=== PATIENT | male | born 1945 | race Caucasian/White ===

== ENCOUNTER → 2016-03-01 | Outpatient (CLI) | payer OTHER ==
[~2016-03-01] MED LIST: AMIO200T4 PO; ASPI81TA28 PO; CARV6.252 PO; CHOL20009 PO; ISOS40TA5 PO; LISI-729 PO; PRLSR20 PO; SITA1TAB27 PO; SPIR25TA PO; THY30 PO; TICA1TAB PO
[2016-03-01 17:32] LABS: HEMATOCRIT 43.4 % (42-52); MEAN CELL VOLUME 85.9 fL (80-100); MEAN CORPUSCULAR HEMOGLOBIN 29.1 pg (25-34); MEAN CORPUSCULAR HGB CONC 33.9 g/dl (32-36); MEAN PLATELET VOLUME 11.7 fL (7.4-10.4); PLATELET COUNT 238 K/uL (130-400); RED BLOOD COUNT 5.05 M/uL (4.7-6.1); WHITE BLOOD COUNT 9.56 K/uL (4.8-10.8)
[2016-03-01 17:34] LABS: ALT/SGPT 37 U/L (12-78); AST/SGOT 27 U/L (15-37); BLOOD UREA NITROGEN 21 mg/dl (7-18); BUN/CREATININE RATIO 14.1 (10-20); CALCIUM 9.6 mg/dl (8.5-10.1); CARBON DIOXIDE 25 mmol/L (21-32); CHLORIDE 106 mmol/L (98-107); GLUCOSE 92 mg/dl (70-99); POTASSIUM 3.8 mmol/L (3.5-5.1); SODIUM 140 mmol/L (136-145)
[2016-03-01 17:44] LABS: ALB/GLOB RATIO 0.8 (0.9-2); ALKALINE PHOSPHATASE 95 U/L (45-117); FREE PSA 0.08 ng/ml; PROSTATE SPECIFIC ANTIGEN 0.235 ng/ml (0.000-4.000)
[2016-03-02 06:56] LABS: ESTIMATED AVERAGE GLUCOSE 111 mg/dl; HA1C FLAG Normal (Normal)
--- NOTE | 2016-03-12 11:35 | CODING QUERY MEDICAL NECESSITY ---
SUPPORTING DIAGNOSIS NEEDED A supporting diagnosis is required for the test/procedure performed on this patient in order for us to be reimbursed by the patient's insurance. Please provide a supporting diagnosis for the following test/procedure listed below next to the test name along with your signature. *If there is no additional diagnosis for this patient that would support the following test/procedure please document that below next to the test/procedure. Test(s)/Procedure(s) that require a supporting diagnosis: DOS 03/01 * Hba1c DIAGNOSIS: Provider Signature: Date: Thank you Peggy Cortez Health Information Management Once completed, please kindly fax back to [phone] For questions please call [phone]
== END | disposition home or self-care (01) ==
LOC: C.LABPBG 13:47
PROVIDERS: ATTEND Neuromusculoskeletal Medicine & OMM
DX: Z00.00 Encounter for general adult medical examination without abnormal findings (principal); N40.1 Benign prostatic hyperplasia with lower urinary tract symptoms; I25.10 Atherosclerotic heart disease of native coronary artery without angina pectoris; E03.9 Hypothyroidism, unspecified; E11.9 Type 2 diabetes mellitus without complications

== ENCOUNTER → 2016-03-29 | Outpatient (CLI) | payer OTHER ==
[2016-03-29 17:29] LABS: HEMATOCRIT 41.2 % (42-52); MEAN CELL VOLUME 84.3 fL (80-100); MEAN CORPUSCULAR HEMOGLOBIN 27.8 pg (25-34); MEAN PLATELET VOLUME 10.8 fL (7.4-10.4); PLATELET COUNT 237 K/uL (130-400); RED BLOOD COUNT 4.89 M/uL (4.7-6.1); WHITE BLOOD COUNT 8.93 K/uL (4.8-10.8)
[2016-03-29 17:49] LABS: ALT/SGPT 35 U/L (12-78); AST/SGOT 18 U/L (15-37); BLOOD UREA NITROGEN 20 mg/dl (7-18); BUN/CREATININE RATIO 13.5 (10-20); CALCIUM 9.1 mg/dl (8.5-10.1); CARBON DIOXIDE 27 mmol/L (21-32); CHLORIDE 108 mmol/L (98-107); GLUCOSE 83 mg/dl (70-99); POTASSIUM 3.6 mmol/L (3.5-5.1); SODIUM 143 mmol/L (136-145)
[2016-03-29 17:51] LABS: ESTIMATED AVERAGE GLUCOSE 108 mg/dl; HA1C FLAG Normal (Normal)
[2016-03-29 17:58] LABS: URINE APPEARANCE TURBID (CLEAR); URINE BILIRUBIN NEG (NEG); URINE COLOR YELLOW; URINE EPITHELIAL CELL AUTO >30 /lpf (0-5); URINE NITRITE NEG (NEG); URINE SPECIFIC GRAVITY 1.023 (1.000-1.030); UROBILINOGEN NEG (NEG)
[2016-03-29 17:59] LABS: ALKALINE PHOSPHATASE 77 U/L (45-117)
[2016-03-29 18:00] LABS: MANUAL MICROSCOPIC REQUIRED? NO; REVIEW REQ? NO
--- NOTE | 2016-04-02 09:43 | CODING QUERY MEDICAL NECESSITY ---
SUPPORTING DIAGNOSIS NEEDED , A supporting diagnosis is required for the test/procedure performed on this patient in order for us to be reimbursed by the patient's insurance. Please provide a supporting diagnosis for the following test/procedure listed below next to the test name along with your signature. *If there is no additional diagnosis for this patient that would support the following test/procedure please document that below next to the test/procedure. Test(s)/Procedure(s) that require a supporting diagnosis: * [id number] GLYCATED HEMOGLOBIN DIAGNOSIS: DATE OF SERVICE: 03/29/16 Provider Signature: Date: Thank you Jean Paul Zacarias [facility] Information Management Once completed, please kindly fax back to [phone] For questions please call [phone]
== END | disposition home or self-care (01) ==
LOC: C.LABPBG 13:44
PROVIDERS: ATTEND Neuromusculoskeletal Medicine & OMM
DX: I25.10 Atherosclerotic heart disease of native coronary artery without angina pectoris (principal); R30.0 Dysuria; Z11.59 Encounter for screening for other viral diseases; E03.9 Hypothyroidism, unspecified

== ENCOUNTER → 2016-04-24 | Outpatient (CLI) | payer OTHER ==
[2016-04-24 18:09] LABS: BLOOD UREA NITROGEN 32 mg/dl (7-18); GLUCOSE 79 mg/dl (70-99)
[2016-04-24 18:10] LABS: CALCIUM 9.4 mg/dl (8.5-10.1); CARBON DIOXIDE 27 mmol/L (21-32); CHLORIDE 105 mmol/L (98-107); SODIUM 139 mmol/L (136-145)
== END | disposition home or self-care (01) ==
LOC: C.LABPBG 13:32
PROVIDERS: ATTEND Neuromusculoskeletal Medicine & OMM
DX: N18.3 Chronic kidney disease, stage 3 (moderate) (principal)

== ENCOUNTER → 2016-05-21 | Outpatient (CLI) | payer OTHER ==
[~2016-05-21] MED LIST changes: +CEPH500C PO; +FLNIN/ NAE; +LSX40 PO; +NTRGSL/4 UT; +THYR90TA6 PO; +VALS-56 PO
[2016-05-21 17:48] LABS: BLOOD UREA NITROGEN 32 mg/dl (7-18); BUN/CREATININE RATIO 20.1 (10-20); CALCIUM 9.1 mg/dl (8.5-10.1); CARBON DIOXIDE 25 mmol/L (21-32); CHLORIDE 108 mmol/L (98-107); GLUCOSE 88 mg/dl (70-99); POTASSIUM 3.6 mmol/L (3.5-5.1); SODIUM 142 mmol/L (136-145); URIC ACID 7.8 mg/dl (2.6-7.2)
[2016-05-21 17:49] LABS: PHOSPHORUS 2.8 mg/dl (2.5-4.9)
[2016-05-21 18:01] LABS: URINE PROTIEN/CREAT RATIO 0.1 (0-0.2); URINE TOTAL PROTEIN 13.3 mg/dl (0-11.9)
[2016-05-21 18:09] LABS: URINE APPEARANCE CLOUDY (CLEAR); URINE BILIRUBIN NEG (NEG); URINE COLOR YELLOW; URINE EPITHELIAL CELL AUTO 20-30 /lpf (0-5); URINE NITRITE NEG (NEG); URINE SPECIFIC GRAVITY 1.025 (1.000-1.030); UROBILINOGEN NEG (NEG)
[2016-05-21 18:13] LABS: MANUAL MICROSCOPIC REQUIRED? NO; REVIEW REQ? NO
== END | disposition home or self-care (01) ==
LOC: C.LABPBG 13:51
PROVIDERS: ATTEND Internal Medicine Nephrology
DX: N17.9 Acute kidney failure, unspecified (principal)

== ENCOUNTER → 2016-05-31 | Outpatient (CLI) | payer OTHER ==
--- NOTE | 2016-05-31 12:28 | DIAGNOSTIC IMAGING REPORT ---
RENAL ULTRASOUND HISTORY: N17.9 BEATRIS (acute kidney injury)[id number] COMPARISON: Abdomen and pelvis CT 03/21/2015. FINDINGS: Right kidney: 11.5 cm. No hydronephrosis. Normal corticomedullary differentiation and cortical thickness. Left kidney: 11.2 cm. No hydronephrosis. Normal corticomedullary differentiation and cortical thickness. Bladder: No bladder wall thickening. The bilateral ureteral jets were identified. IMPRESSION: Normal renal ultrasound. Electronically signed by: Vinicio Avalos M.D. 05/31/2016 12:26 PM Dictated Date/Time: 05/31/2016 12:21 PM
--- NOTE | 2016-05-31 13:03 | DIAGNOSTIC IMAGING REPORT ---
RENAL ARTERY DUPLEX ULTRASOUND CLINICAL HISTORY: N17.9 BEATRIS (acute kidney injury)[id number] COMPARISON STUDY: No previous studies for comparison. FINDINGS: The peak systolic velocity within the aorta was 90 cm/s. The peak systolic velocity within the right renal artery is 93 cm/s. The peak systolic velocity in left renal arteries 102 cm/s. Both renal veins are patent. IMPRESSION: No evidence of renal artery stenosis. Both renal veins appear patent Electronically signed by: Abdias Ivey M.D. 05/31/2016 1:01 PM Dictated Date/Time: 05/31/2016 12:23 PM
== END | disposition home or self-care (01) ==
LOC: C.ULTR 10:52
PROVIDERS: ATTEND Internal Medicine Nephrology
DX: N17.9 Acute kidney failure, unspecified (principal)

== ENCOUNTER → 2016-06-26 | Outpatient (CLI) | payer OTHER ==
[2016-06-26 13:23] LABS: BLOOD UREA NITROGEN 22 mg/dl (7-18); BUN/CREATININE RATIO 15.8 (10-20); CALCIUM 9.3 mg/dl (8.5-10.1); CARBON DIOXIDE 27 mmol/L (21-32); CHLORIDE 109 mmol/L (98-107); GLUCOSE 82 mg/dl (70-99); POTASSIUM 4.2 mmol/L (3.5-5.1); SODIUM 143 mmol/L (136-145)
[2016-06-26 13:24] LABS: PHOSPHORUS 2.5 mg/dl (2.5-4.9)
== END | disposition home or self-care (01) ==
LOC: C.LAB1850 11:13
PROVIDERS: ATTEND Internal Medicine Nephrology
DX: N18.3 Chronic kidney disease, stage 3 (moderate) (principal)

== ENCOUNTER → 2016-07-25 | Outpatient (CLI) | payer OTHER | END | disposition home or self-care (01) | LOC: C.LABPBG 09:35 | PROVIDERS: ATTEND Neuromusculoskeletal Medicine & OMM | DX: R04.0 Epistaxis (principal) ==

== ENCOUNTER → 2016-09-20 | Outpatient (CLI) | payer OTHER ==
[2016-09-20 17:19] LABS: BLOOD UREA NITROGEN 26 mg/dl (7-18); BUN/CREATININE RATIO 16.6 (10-20); CARBON DIOXIDE 22 mmol/L (21-32); CHLORIDE 111 mmol/L (98-107); GLUCOSE 129 mg/dl (70-99); PHOSPHORUS 2.4 mg/dl (2.5-4.9); POTASSIUM 3.7 mmol/L (3.5-5.1); SODIUM 142 mmol/L (136-145)
== END | disposition home or self-care (01) ==
LOC: C.LABPBG 12:47
PROVIDERS: ATTEND Internal Medicine Nephrology
DX: N18.3 Chronic kidney disease, stage 3 (moderate) (principal)

== ENCOUNTER → 2016-10-16 | Outpatient (CLI) | payer OTHER ==
[2016-10-16 13:01] LABS: THYROID STIMULATING HORMONE 29.6 uIu/ml (0.300-4.500)
== END | disposition home or self-care (01) ==
LOC: C.LABPBG 10:23
PROVIDERS: ATTEND Physician Assistant
DX: E03.9 Hypothyroidism, unspecified (principal); J02.9 Acute pharyngitis, unspecified

== ENCOUNTER 2016-11-17 11:45 | Emergency (ER) | payer OTHER ==
[~2016-11-17] VITALS: Ht 185.4 cm; Wt 115.0 kg
[~2016-11-17 11:45] MED LIST changes: -CEPH500C PO; -FLNIN/ NAE; -LSX40 PO; -NTRGSL/4 UT; -THYR90TA6 PO; -VALS-56 PO
[2016-11-17 11:49] VITALS: TEMP 36.8; Ht 185.4 cm; Wt 115.0 kg
[2016-11-17] MEDS ORDERED: VALS-56 PO (12:40)
[2016-11-17] MEDS ORDERED: LSX40 PO (12:40)
[2016-11-17] MEDS ORDERED: THYR90TA6 PO (12:40)
[2016-11-17] MEDS ORDERED: NTRGSL/4 UT (12:40)
[2016-11-17] MEDS ORDERED: FLNIN/ NAE (12:40)
[2016-11-17] MEDS ORDERED: ACETAMINOPHEN 500 MG TAB PO STA (12:58)
[2016-11-17 12:59] VITALS: O2SAT 96
--- NOTE | 2016-11-17 13:00 | EMERGENCY ROOM VISIT NOTE ---
History Report prepared by Trey: Arturo Taylor Under the Supervision of: Dr. Andrés Moreno M.D. First contact with patient: 12:48 Chief Complaint: OTHER COMPLAINT Stated Complaint: INFECTION Nursing Triage Summary: pt ambulated to triage pt states " I have an infection in me it is all through me I wake up in the middle of the night soaking the bed" pt reports I had blisters on my head and in my mouth, reports intermittent cough for approx 1 month History of Present Illness The patient is a 71 year old male who presents to the Emergency Room with a complaints of a constant generalized illness for the past month. The patient reports having a cough, chest pain that worsens with coughing, night sweats, headache, fatigue, "water blisters" on his forehead, neck, and mouth. He denies any fever, nausea, vomiting, shortness of breath, diarrhea, dysuria and water weight gain in his legs. He notes that he saw a PA at his PCP's office a month ago for his symptoms, but states that he was treated for his hypothyroidism instead. He reports that his symptoms have not resolved since then and that he has not taken any medications for his illness. He notes that he has a history of heart failure and had a heart attack last year and was brought into the Emergency Room by EMS and did have two stents placed. He reports that the last time he saw his nurse care manager was last year and he takes daily Lasix. Source of History: patient Onset: one month ago Position: other (global) Timing: constant Associated Symptoms: + headache, + diaphoresis, + cough, + chest pain, + fatigue, No fevers, No SOB, No nausea, No vomiting, No diarrhea, No urinary symptoms Note: He is also experiencing symptoms of night sweats and blisters on his forehead and neck and in his mouth. He denies any water weight gain in his legs. Review of Systems See HPI for pertinent positives and negatives. A total of ten systems were reviewed and were otherwise negative. Past Medical & Surgical Medical Problems: (1) Abdominal pain (2) CAD (coronary artery disease) (3) CKD (chronic kidney disease), stage III (4) Diverticulosis of sigmoid colon (5) DM2 (diabetes mellitus, type 2) (6) GERD (gastroesophageal reflux disease) (7) History of left heart catheterization (LHC) (8) HLD (hyperlipidemia) (9) HTN (hypertension) (10) Internal hemorrhoid (11) STEMI (ST elevation myocardial infarction) (12) Tobacco abuse Surgical Problems: (1) H/O colonoscopy (2) H/O hernia repair (3) History of esophagogastroduodenoscopy (EGD) Family History FH: heart disease FATHER BROTHER (CABG in 50s) Stroke Social History Smoking Status: Never Smoker Drug Use: none Housing Status: lives with family Occupation Status: retired Current/Historical Medications Scheduled Amiodarone Hcl (Cordarone), 200 MG PO DAILY Carvedilol (Coreg), 6.25 MG PO BID Cephalexin Monohydrate (Keflex), 500 MG PO QID Cholecalciferol (Vitamin D), 2,000 INTER.UNIT PO DAILY Fluticasone Propionate (Fluticasone Propionate), 2 SPRAYS AYSHA DAILY Isosorbide Dinitrate Ext Rel (Isordil Ext Rel), 40 MG PO QAM Nitroglycerin (Nitrostat), 0.4 MG UT PRN Omeprazole (Prilosec), 20 MG PO DAILY Thyroid ([employer] Thyroid 90), 90 MG PO DAILYBB Ticagrelor (Brilinta), 90 MG PO BID Valsartan (Valsartan), 40 MG PO DAILY Scheduled PRN Furosemide (Furosemide), 40 MG PO DAILY PRN for SWELLING Allergies Coded Allergies: Gadolinium (Verified Allergy, Severe, Unknown, 11/17/16) Sent to [place] for severe reaction. Clopidogrel (Unverified Allergy, Unknown, UNKNOWN, 11/17/16) Levothyroxine (Verified Allergy, Unknown, Blistering of skin., 11/17/16) Statins (Unverified Allergy, Unknown, SHORTNESS OF BREATH, 11/17/16) Physical Exam Vital Signs Date Time Temp Pulse Resp B/P (MAP) Pulse Ox O2 Delivery O2 Flow Rate FiO2 11/17/16 15:48 56 162/101 96 11/17/16 14:17 54 152/81 96 Room Air 11/17/16 13:26 52 11/17/16 12:59 96 Room Air 11/17/16 12:58 55 128/64 96 Room Air 11/17/16 11:49 36.8 62 18 138/75 96 Room Air Physical Exam GENERAL: Awake, alert, well-appearing, in no distress HENT: Normocephalic, atraumatic. Mild erythema in the posterior scalp, punctate lesions that have been excoriated, mild warmth, no crepitus, fluctuance or induration. Oropharynx unremarkable. Dry mucous membranes EYES: Normal conjunctiva. Sclera non-icteric. NECK: Supple. No nuchal rigidity. FROM. No JVD. RESPIRATORY: Clear to auscultation. CARDIAC: Regular rate, normal rhythm. Extremities warm and well perfused. Pulses equal. ABDOMEN: Obese, soft, non-distended. No tenderness to palpation. No rebound or guarding. No masses. RECTAL: Deferred. MUSCULOSKELETAL: Chest examination reveals no tenderness. The back is symmetrical on inspection without obvious abnormality. There is no CVA tenderness to palpation. No joint edema. LOWER EXTREMITIES: Scant LE edema Calves are equal size bilaterally and non- tender. No discoloration. Legs are symmetric, no pain in calves. NEURO: Normal sensorium. No sensory or motor deficits noted. SKIN: No rash or jaundice noted. Medical Decision & Procedures ER Provider Diagnostic Interpretation: Radiology results as stated below per my review and radiologist interpretation: CHEST ONE VIEW PORTABLE CLINICAL HISTORY: 71 years-old Male presenting with CHEST PAIN. TECHNIQUE: Portable upright AP view of the chest was obtained. COMPARISON: 09/15/2015. FINDINGS: Cardiac silhouette enlarged, unchanged. Prominence of pulmonary vasculature. Prominent reticular lung markings with vague bibasilar density. No other focal infiltrate. No large effusion or pneumothorax. Degenerative changes of the thoracic spine. Upper abdomen normal. IMPRESSION: 1. Cardiomegaly with pulmonary basilar prominence and prominence of interstitial lung markings suggest volume overload. No jennifer pulmonary edema. This appearance is not significantly changed from prior radiograph. Electronically signed by: Kali Galo M.D. 11/17/2016 3:17 PM Laboratory Results 11/17/16 13:15 Red Blood Count 4.60, Mean Corpuscular Volume 84.1, Mean Corpuscular Hemoglobin 27.8, Mean Corpuscular Hemoglobin Concent 33.1, Mean Platelet Volume 10.4, Neutrophils (%) (Auto) 70.1, Lymphocytes (%) (Auto) 19.0, Monocytes (%) (Auto) 7.0, Eosinophils (%) (Auto) 2.7, Basophils (%) (Auto) 0.6, Neutrophils # (Auto) 7.44, Lymphocytes # (Auto) 2.01, Monocytes # (Auto) 0.74, Eosinophils # (Auto) 0.29, Basophils # (Auto) 0.06 11/17/16 13:15 Test 11/17/16 13:15 11/17/16 14:15 White Blood Count 10.60 K/uL (4.8-10.8) Red Blood Count 4.60 M/uL (4.7-6.1) Hemoglobin 12.8 g/dL (14.0-18.0) Hematocrit 38.7 % (42-52) Mean Corpuscular Volume 84.1 fL (80-100) Mean Corpuscular Hemoglobin 27.8 pg (25-34) Mean Corpuscular Hemoglobin Concent 33.1 g/dl (32-36) Platelet Count 268 K/uL (130-400) Mean Platelet Volume 10.4 fL (7.4-10.4) Neutrophils (%) (Auto) 70.1 % Lymphocytes (%) (Auto) 19.0 % Monocytes (%) (Auto) 7.0 % Eosinophils (%) (Auto) 2.7 % Basophils (%) (Auto) 0.6 % Neutrophils # (Auto) 7.44 K/uL (1.4-6.5) Lymphocytes # (Auto) 2.01 K/uL (1.2-3.4) Monocytes # (Auto) 0.74 K/uL (0.11-0.59) Eosinophils # (Auto) 0.29 K/uL (0-0.5) Basophils # (Auto) 0.06 K/uL (0-0.2) RDW Standard Deviation 41.2 fL (36.4-46.3) RDW Coefficient of Variation 13.5 % (11.5-14.5) Immature Granulocyte % (Auto) 0.6 % Immature Granulocyte # (Auto) 0.06 K/uL (0.00-0.02) Anion Gap 10.0 mmol/L (3-11) Est Creatinine Clear Calc Drug Dose 68.2 ml/min Estimated GFR () 63.2 Estimated GFR (Non- 54.5 BUN/Creatinine Ratio 16.5 (10-20) Calcium Level 8.9 mg/dl (8.5-10.1) Total Bilirubin 0.4 mg/dl (0.2-1) Direct Bilirubin 0.1 mg/dl (0-0.2) Aspartate Amino Transf (AST/SGOT) 22 U/L (15-37) Alanine Aminotransferase (ALT/SGPT) 33 U/L (12-78) Alkaline Phosphatase 139 U/L (45-117) Troponin I < 0.015 ng/ml (0-0.045) Pro-B-Type Natriuretic Peptide 2651 pg/ml (0-900) Total Protein 7.9 gm/dl (6.4-8.2) Albumin 3.2 gm/dl (3.4-5.0) Lipase 275 U/L (73-393) Urine Color DK YELLOW Urine Appearance CLEAR (CLEAR) Urine pH 5.0 (4.5-7.5) Urine Specific [place] 1.033 (1.000-1.030) Urine Protein TRACE (NEG) Urine Glucose (UA) NEG (NEG) Urine Ketones NEG (NEG) Urine Occult Blood NEG (NEG) Urine Nitrite NEG (NEG) Urine Bilirubin NEG (NEG) Urine Urobilinogen NEG (NEG) Urine Leukocyte Esterase TRACE (NEG) Urine WBC (Auto) 5-10 /hpf (0-5) Urine RBC (Auto) 0-4 /hpf (0-4) Urine Hyaline Casts (Auto) 1-5 /lpf (0-5) Urine Epithelial Cells (Auto) >30 /lpf (0-5) Urine Bacteria (Auto) NEG (NEG) Laboratory results reviewed by me Medications Administered Medications (Trade) Dose Ordered Sig/Radha Route Start Time Stop Time Status Last Admin Dose Admin Acetaminophen (Tylenol Tab) 1,000 mg NOW STAT PO 11/17/16 12:58 11/17/16 12:59 DC 11/17/16 13:07 1,000 MG Cephalexin Monohydrate (Keflex Cap) 500 mg NOW ONCE PO 11/17/16 15:45 11/17/16 15:46 DC 11/17/16 15:44 500 MG ECG Indication: chest pain Rate (beats per minute): 52 Rhythm: sinus bradycardia Findings: no acute ischemic change, other (Normal axis) Change: no significant change ED Course 1249: The patient was evaluated in room C4. A complete history and physical exam was performed. 1258: Tylenol Tab 1000mg PO 1519: I reevaluated and updated the patient. He is resting comfortably. 1545: Keflex Cap 500mg PO 1640: I reevaluated the patient. Discussed results and discharge instructions: He verbalized understanding and agreement. The patient is ready for discharge. Medical Decision I reviewed the patient's past medical history, medications, and the nursing notes as described above. The differential diagnoses considered include: cellulitis, dehydration, electrolyte abnormality, CHF, or ACS. The patient is a 71 year gentleman with a past medical history of CHF with an EF of 35% sensitive emergency department with vague complaints of fatigue over the past month with redness to his scalp per history of present illness. The patient is relatively well-appearing, no acute distress, afebrile with stable vital signs. Mild redness to the posterior aspect of the scalp without any crepitus induration or fluctuance. Labs unremarkable with WBC within normal limits, [employer] in the 1999s however patient has been in the 3000s and denies any respiratory symptoms. Chest x-ray with cardiomegaly but mild vascular congestion but again patient denies any dyspnea and satting normally on room air. Patient reevaluated and requesting discharge. Given no emergent findings discharge is reasonable with close follow-up. Treat with Keflex. Findings and plan for follow-up d/w patient. Patient agreeable and d/c'd per discharge instructions. Medication Reconcilliation Current Medication List: was personally reviewed by me Blood Pressure Screening Patient's blood pressure: Elevated blood pressure Blood pressure disposition: Referred to PCP Impression Primary Impression: Cellulitis of scalp Scribe Attestation The scribe's documentation has been prepared under my direction and personally reviewed by me in its entirety. I confirm that the note above accurately reflects all work, treatment, procedures, and medical decision making performed by me. Departure Information Dispostion Home / Self-Care Prescriptions Cephalexin Monohydrate (Keflex) 500 Mg Cap 500 MG PO QID for 7 Days, #28 CAP Prov: Andrés Moreno M.D. 11/17/16 Referrals Sarahi Cortes DO (PCP) Patient Instructions Cellulitis Dc, Fatigue Manage, My [facility] Additional Instructions Please follow up with your primary care physician tomorrow for re-evaluation and with your nurse care manager as scheduled. You have a skin infection on your scalp. Otherwise, your exam, EKG, chest xray, and lab results did not show signs of an emergent condition at this time. Return to the emergency department for worsening symptoms as described in the accompanying instructions.
[2016-11-17 13:35] LABS: BASO % 0.6 %; BASO ABS # 0.06 K/uL (0-0.2); COMPLETE YES; EOS % 2.7 %; HEMATOCRIT 38.7 % (42-52); IG% 0.6 %; LYMPH ABS # 2.01 K/uL (1.2-3.4); MEAN CELL VOLUME 84.1 fL (80-100); MEAN CORPUSCULAR HEMOGLOBIN 27.8 pg (25-34); MEAN CORPUSCULAR HGB CONC 33.1 g/dl (32-36); MEAN PLATELET VOLUME 10.4 fL (7.4-10.4); NEUT % 70.1 %; PLATELET COUNT 268 K/uL (130-400)
[2016-11-17 14:01] LABS: ALT/SGPT 33 U/L (12-78); AST/SGOT 22 U/L (15-37); BLOOD UREA NITROGEN 21 mg/dl (7-18); BUN/CREATININE RATIO 16.5 (10-20); CALCIUM 8.9 mg/dl (8.5-10.1); CARBON DIOXIDE 22 mmol/L (21-32); CHLORIDE 109 mmol/L (98-107); GLUCOSE 99 mg/dl (70-99); POTASSIUM 3.5 mmol/L (3.5-5.1); SODIUM 141 mmol/L (136-145)
[2016-11-17 14:24] LABS: ALKALINE PHOSPHATASE 139 U/L (45-117)
[2016-11-17 15:00] LABS: URINE APPEARANCE CLEAR (CLEAR); URINE BILIRUBIN NEG (NEG); URINE COLOR DK YELLOW; URINE EPITHELIAL CELL AUTO >30 /lpf (0-5); URINE NITRITE NEG (NEG); URINE SPECIFIC GRAVITY 1.033 (1.000-1.030); UROBILINOGEN NEG (NEG); ZZUR CULT IF INDIC CLEAN CATCH NO
[2016-11-17 15:09] LABS: MANUAL MICROSCOPIC REQUIRED? NO; REVIEW REQ? NO
--- NOTE | 2016-11-17 15:19 | DIAGNOSTIC IMAGING REPORT ---
CHEST ONE VIEW PORTABLE CLINICAL HISTORY: 71 years-old Male presenting with CHEST PAIN. TECHNIQUE: Portable upright AP view of the chest was obtained. COMPARISON: 09/15/2015. FINDINGS: Cardiac silhouette enlarged, unchanged. Prominence of pulmonary vasculature. Prominent reticular lung markings with vague bibasilar density. No other focal infiltrate. No large effusion or pneumothorax. Degenerative changes of the thoracic spine. Upper abdomen normal. IMPRESSION: 1. Cardiomegaly with pulmonary basilar prominence and prominence of interstitial lung markings suggest volume overload. No jennifer pulmonary edema. This appearance is not significantly changed from prior radiograph. Electronically signed by: Kali Galo M.D. 11/17/2016 3:17 PM Dictated Date/Time: 11/17/2016 3:16 PM
[2016-11-17] MEDS ORDERED: CEPH500C PO (15:39)
[2016-11-17] MEDS ORDERED: CEPHALEXIN MONOHYDRATE 250 MG CAP PO ONE (15:45)
[2016-11-17 15:48] VITALS: BP 162/101; PULSE 56; O2SAT 96
== END 2016-11-17 15:49 | disposition home or self-care (01) ==
LOC: C.EDB 11:47 → C.EDC 15:49
DX: L03.811 Cellulitis of head [any part, except face] (principal); R00.1 Bradycardia, unspecified; I12.9 Hypertensive chronic kidney disease with stage 1 through stage 4 chronic kidney disease, or unspecified chronic kidney disease; N18.3 Chronic kidney disease, stage 3 (moderate); E11.9 Type 2 diabetes mellitus without complications; I25.10 Atherosclerotic heart disease of native coronary artery without angina pectoris; E78.5 Hyperlipidemia, unspecified; K21.9 Gastro-esophageal reflux disease without esophagitis; I25.2 Old myocardial infarction; F17.200 Nicotine dependence, unspecified, uncomplicated; K57.30 Diverticulosis of large intestine without perforation or abscess without bleeding; Z79.899 Other long term (current) drug therapy; Z88.8 Allergy status to other drugs, medicaments and biological substances; Z82.49 Family history of ischemic heart disease and other diseases of the circulatory system; Z82.3 Family history of stroke

== ENCOUNTER → 2016-11-21 | Outpatient (CLI) | payer OTHER ==
[~2016-11-21] MED LIST changes: -ASPI81TA28 PO; +CEPH500C PO; +FLNIN/ NAE; -LISI-729 PO; +LSX40 PO; +NTRGSL/4 UT; -SITA1TAB27 PO; -SPIR25TA PO; -THY30 PO; +THYR90TA6 PO; +VALS-56 PO
[2016-11-21 12:16] LABS: BASO % 0.4 %; BASO ABS # 0.04 K/uL (0-0.2); COMPLETE YES; EOS % 3.1 %; HEMATOCRIT 39.9 % (42-52); IG% 0.9 %; LYMPH % 26.8 %; LYMPH ABS # 2.65 K/uL (1.2-3.4); MEAN CELL VOLUME 84.4 fL (80-100); MEAN CORPUSCULAR HEMOGLOBIN 28.3 pg (25-34); MEAN CORPUSCULAR HGB CONC 33.6 g/dl (32-36); MONO % 4.4 %; NEUT % 64.4 %; PLATELET COUNT 360 K/uL (130-400); RED BLOOD COUNT 4.73 M/uL (4.7-6.1)
[2016-11-21 12:54] LABS: LYME DISEASE AB IGG NEG (NEG); LYME DISEASE AB IGM NEG (NEG)
== END | disposition home or self-care (01) ==
LOC: C.LABPBG 10:11
PROVIDERS: ATTEND Family Medicine
DX: R53.83 Other fatigue (principal); E03.9 Hypothyroidism, unspecified; R61 Generalized hyperhidrosis

== ENCOUNTER → 2016-12-26 | Outpatient (CLI) | payer OTHER ==
[~2016-12-26] MED LIST changes: -CEPH500C PO
[2016-12-26 14:39] LABS: THYROID STIMULATING HORMONE 0.556 uIu/ml (0.300-4.500)
== END | disposition home or self-care (01) ==
LOC: C.LABPBG 10:52
PROVIDERS: ATTEND Family Medicine
DX: E03.9 Hypothyroidism, unspecified (principal)

== ENCOUNTER → 2017-02-14 | Outpatient (CLI) | payer OTHER ==
[2017-02-14 12:44] LABS: BASO % 0.6 %; BASO ABS # 0.05 K/uL (0-0.2); EOS % 2.9 %; EOS ABS # 0.24 K/uL (0-0.5); HEMATOCRIT 46.1 % (42-52); HEMOGLOBIN 15.1 g/dL (14.0-18.0); IG# 0.03 K/uL (0.00-0.02); LYMPH % 26.6 %; LYMPH ABS # 2.19 K/uL (1.2-3.4); MEAN CELL VOLUME 83.2 fL (80-100); MEAN CORPUSCULAR HEMOGLOBIN 27.3 pg (25-34); MEAN CORPUSCULAR HGB CONC 32.8 g/dl (32-36); MEAN PLATELET VOLUME 11.1 fL (7.4-10.4); MONO % 9.5 %; MONO ABS # 0.78 K/uL (0.11-0.59); NEUT ABS # 4.95 K/uL (1.4-6.5); PLATELET COUNT 255 K/uL (130-400); RED CELL DISTRIBUTION WIDTH CV 14.2 % (11.5-14.5); RED CELL DISTRIBUTION WIDTH SD 43.2 fL (36.4-46.3); WHITE BLOOD COUNT 8.24 K/uL (4.8-10.8)
[2017-02-14 15:18] LABS: BLOOD UREA NITROGEN 19 mg/dl (7-18); CALCIUM 9.7 mg/dl (8.5-10.1); CARBON DIOXIDE 25 mmol/L (21-32); CREATININE 1.33 mg/dl (0.60-1.40); GLUCOSE 91 mg/dl (70-99); POTASSIUM 3.8 mmol/L (3.5-5.1); SODIUM 139 mmol/L (136-145)
== END | disposition home or self-care (01) ==
LOC: C.LABPBG 09:43
PROVIDERS: ATTEND Family Medicine
DX: R04.0 Epistaxis (principal); R25.1 Tremor, unspecified

== ENCOUNTER → 2017-03-03 | Outpatient (CLI) | payer OTHER | END | disposition home or self-care (01) | LOC: C.LABPBG 09:12 | PROVIDERS: ATTEND Internal Medicine Cardiovascular Disease | DX: E78.5 Hyperlipidemia, unspecified (principal); I10 Essential (primary) hypertension ==

== ENCOUNTER → 2017-03-27 | Outpatient (CLI) | payer OTHER | END | disposition home or self-care (01) | LOC: C.LABPBG 09:13 | PROVIDERS: ATTEND Family Medicine | DX: E03.9 Hypothyroidism, unspecified (principal) ==

== ENCOUNTER → 2017-05-08 | Outpatient (CLI) | payer OTHER | END | disposition home or self-care (01) | LOC: C.LABPBG 10:36 | PROVIDERS: ATTEND Family Medicine | DX: E03.9 Hypothyroidism, unspecified (principal) ==

== ENCOUNTER → 2017-06-17 | Outpatient (CLI) | payer OTHER ==
[2017-06-17 14:07] LABS: HEMATOCRIT 43.7 % (42-52); HEMOGLOBIN 14.5 g/dL (14.0-18.0); MEAN CORPUSCULAR HEMOGLOBIN 28.2 pg (25-34); MEAN CORPUSCULAR HGB CONC 33.2 g/dl (32-36); MEAN PLATELET VOLUME 10.8 fL (7.4-10.4); PLATELET COUNT 293 K/uL (130-400); RED CELL DISTRIBUTION WIDTH CV 14.6 % (11.5-14.5); RED CELL DISTRIBUTION WIDTH SD 45.4 fL (36.4-46.3); WHITE BLOOD COUNT 8.36 K/uL (4.8-10.8)
[2017-06-17 14:22] LABS: HEMOGLOBIN A1C 5.8 % (4.5-5.6)
[2017-06-17 14:37] LABS: ALBUMIN 3.9 gm/dl (3.4-5.0); ALT/SGPT 32 U/L (12-78); AST/SGOT 26 U/L (15-37); BLOOD UREA NITROGEN 22 mg/dl (7-18); CALCIUM 8.9 mg/dl (8.5-10.1); CARBON DIOXIDE 26 mmol/L (21-32); CHOLESTEROL 133 mg/dl (0-200); CREATININE 1.34 mg/dl (0.60-1.40); GLUCOSE 94 mg/dl (70-99); SODIUM 138 mmol/L (136-145)
[2017-06-17 14:47] LABS: ALKALINE PHOSPHATASE 95 U/L (45-117); LDL CHOLESTEROL CALCULATED 78 mg/dl
== END | disposition home or self-care (01) ==
LOC: C.LABPBG 08:55
PROVIDERS: ATTEND Family Medicine
DX: I25.10 Atherosclerotic heart disease of native coronary artery without angina pectoris (principal); I42.9 Cardiomyopathy, unspecified; I12.9 Hypertensive chronic kidney disease with stage 1 through stage 4 chronic kidney disease, or unspecified chronic kidney disease; N18.3 Chronic kidney disease, stage 3 (moderate)

== ENCOUNTER → 2017-09-04 | Outpatient (CLI) | payer OTHER | END | disposition home or self-care (01) | LOC: C.LABPBG 10:32 | PROVIDERS: ATTEND Internal Medicine Cardiovascular Disease | DX: E03.9 Hypothyroidism, unspecified (principal) ==